=== PATIENT | male | born 1950 ===

== ENCOUNTER 2019-08-14 09:12 | Outpatient (CLI) | payer OTHER | END 2019-08-14 09:13 | disposition home or self-care (01) | LOC: RAD 09:12 | DX: R07.89 Other chest pain (principal) ==

== ENCOUNTER 2020-01-16 21:31 | Emergency (ER) | payer OTHER ==
[~2020-01-16] VITALS: Ht 175.3 cm; Wt 81.6 kg
[2020-01-16] MEDS ORDERED: [UNRECOGNIZED DRUG - OTHER] (22:26)
== END 2020-01-17 06:50 | disposition home or self-care (01) ==
LOC: ER 21:31 → CPU-OBS 21:37 → ER 21:37
DX: I48.0 Paroxysmal atrial fibrillation (principal); E87.6 Hypokalemia

== ENCOUNTER 2020-01-27 07:19 | Outpatient (CLI) | payer OTHER ==
[~2020-01-27 07:19] MED LIST: [UNRECOGNIZED DRUG - OTHER]
== END 2020-01-27 07:22 | disposition home or self-care (01) ==
LOC: NUCLEAR 07:19
PROVIDERS: ATTEND Internal Medicine Cardiovascular Disease
DX: R07.89 Other chest pain (principal)
CPT/HCPCS: 78452; 93017; A9500

== ENCOUNTER 2020-01-28 10:25 | Outpatient (CLI) | payer OTHER | END 2020-01-28 10:30 | disposition home or self-care (01) | LOC: SONOGRAMA 10:25 → MAMO-SONO 10:45 | DX: D16.31 Benign neoplasm of short bones of right lower limb (principal) ==